=== PATIENT | male | born 1945 | race Caucasian/White ===

== ENCOUNTER → 2016-09-07 | Outpatient (CLI) | payer OTHER ==
--- NOTE | 2016-09-07 10:27 | US ---
EXAMINATION TYPE: US kidneys/renal and bladder DATE OF EXAM: 09/07/2016 9:59 AM COMPARISON: NONE CLINICAL HISTORY: R39.29 Hematuria. EXAM MEASUREMENTS: Right Kidney: 10.5 x 4.8 x 5.0 cm Left Kidney: 10.0 x 5.4 x 5.4 cm Right Kidney: probable peripelvic cyst slightly irregular shaped 1.) 1.1 x 1.2 x 1.2cm Left Kidney: No hydronephrosis or masses seen Bladder: cystic spaces within irregular shaped bladder wall Bilateral Jets seen: Yes Prostate appears prominent, possible enlargement There is no evidence for hydronephrosis at this point in time. No nephrolithiasis is seen. Irregular ity of the urinary bladder wall with multiple polypoid lesions seen. Bilateral ureteral jets are seen . IMPRESSION: 1. Probable right renal cyst. 2. Irregularity of the urinary bladder wall with multiple polypoid lesions.
== END | disposition home or self-care (01) ==
LOC: RADUSWWP 09:34
PROVIDERS: ATTEND Urology
DX: N32.89 Other specified disorders of bladder (principal); R31.9 Hematuria, unspecified
CPT/HCPCS: 76770

== ENCOUNTER 2016-09-11 06:57 | Day surgery (SDC) | payer OTHER ==
[2016-09-07 13:27] VITALS: BMI 23.7
[~2016-09-11 06:57] MED LIST: LACTATED RINGERS 1,000 ML IV SCH
[2016-09-11] MEDS ORDERED: LACTATED RINGERS 1,000 ML IV ONE (07:06)
[2016-09-11 07:12] VITALS: RESP 16; TEMP 96.6
[2016-09-11] MEDS ORDERED: PROPOFOL 10 MG/ML 20 ML VIAL IV ONE (08:38)
--- NOTE | 2016-09-11 09:08 | P.PCN ---
Date of Procedure: 09/11/16 Preoperative Diagnosis: Postoperative Diagnosis: Procedure(s) Performed: Procedure: Total colonoscopy. Preoperative diagnosis: Screening for neoplasia, patient has family history of colon cancer. Postoperative diagnosis: Exam within normal limits. Preparation: HalfLytely prep. Sedation: Was provided by anesthesia. Brief clinical history: The patient is a 70-year-old male who is scheduled for this evaluation for screening for neoplasia because of family history of colon cancer. His last exam was in 2011. Procedure: With the patient on his left lateral decubitus position and after informed consent and adequate sedation, the perianal area was inspected and it did not show any fissures or fistulas. There were no masses felt on digital rectal examination. The Olympus CFQ 160L video colonoscope was then inserted in the rectum in the usual fashion and advanced to the cecum. The mucosa appeared healthy. No polyps or tumors were seen or any obvious diverticular disease or other pathology. I retroflexed the endoscope in the rectum before the endoscope was withdrawn. The patient tolerated the procedure well. Plan: The patient was reassured. He will follow up with you as planned and consideration can be given for repeat exam in 5 years depending on his overall health at that time. Implants: Indications for Procedure: Operative Findings: Description of Procedure:
[2016-09-11 09:45] VITALS: BP 130/81; PULSE 61
== END 2016-09-11 11:23 | disposition home or self-care (01) ==
LOC: ORWHC2ENDO 06:57
DX: Z12.11 Encounter for screening for malignant neoplasm of colon (principal); Z80.0 Family history of malignant neoplasm of digestive organs; I10 Essential (primary) hypertension; Z79.899 Other long term (current) drug therapy
CPT/HCPCS: J2704; G0105

== ENCOUNTER → 2017-08-13 | Outpatient (CLI) | payer MEDICARE, OTHER ==
--- NOTE | 2017-08-13 11:33 | ECHOF ---
Referral Reason:R01.1 cardiac murmur MEASUREMENTS -------- HEIGHT: 182.9 cm WEIGHT: 71.7 kg BP: IVSd: 1.1 cm (0.6 - 1.1) LVIDd: 4.7 cm (3.9 - 5.3) LVPWd: 1.0 cm (0.6 - 1.1) IVSs: 1.2 cm LVIDs: 4.0 cm LVPWs: 1.2 cm LA Diam: 2.8 cm (2.7 - 3.8) Ao Diam: 3.9 cm (2.0 - 3.7) AV Cusp: 2.4 cm (1.5 - 2.6) LA Diam: 3.2 cm (2.7 - 3.8) MV EXCURSION: 15.271 mm (> 18.000) MV EF SLOPE: 60 mm/s (70 - 150) EPSS: 0.5 cm MV E Lamin: 0.32 m/s MV DecT: 215 ms MV A Lamin: 0.63 m/s MV E/A Ratio: 0.51 AR PHT: 651 ms RAP: 5.00 mmHg RVSP: 22.08 mmHg FINDINGS -------- Sinus rhythm. This was a technically good study. The left ventricular size is normal. Overall left ventricular systolic function is normal with, an EF between 55 - 60 %. The right ventricle is normal in size. Normal LA size by volume 22+/-6 ml/m2. The right atrial size is normal. There is mild aortic valve sclerosis. There is mild aortic regurgitation. Mild mitral annular calcification present. Mild mitral regurgitation is present. Mild tricuspid regurgitation present. There is no evidence of pulmonary hypertension. The right v entricular systolic pressure, as measured by Doppler, is 22.08mmHg. Trace/mild (physiologic) pulmonic regurgitation. Aortic Root is mildly dilated and measures 4.0cm. There is no pericardial effusion. CONCLUSIONS -------- 1. The left ventricular size is normal. 2. Overall left ventricular systolic function is normal with, an EF between 55 - 60 %. 3. There is mild aortic valve sclerosis. 4. There is mild aortic regurgitation. 5. Mild mitral annular calcification present. 6. Mild mitral regurgitation is present. 7. Mild tricuspid regurgitation present. 8. There is no evidence of pulmonary hypertension. 9. The right ventricular systolic pressure, as measured by Doppler, is 22.08mmHg. 10. Trace/mild (physiologic) pulmonic regurgitation. 11. Aortic Root is mildly dilated and measures 4.0cm. 12. There is no pericardial effusion. 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
== END | disposition home or self-care (01) ==
LOC: RADECHMAIN 08:22
PROVIDERS: ATTEND Family Medicine
DX: I08.1 Rheumatic disorders of both mitral and tricuspid valves (principal)
CPT/HCPCS: 93306

== ENCOUNTER → 2017-12-17 | Outpatient (CLI) | payer MEDICARE ==
--- NOTE | 2017-12-17 14:53 | MR ---
EXAMINATION TYPE: MR knee LT wo con DATE OF EXAM: 12/17/2017 COMPARISON: Prior MRI 01/13/2016, plain film 09/20/2017 HISTORY: Left knee pain TECHNIQUE: Multiplanar, multisequence imaging of the knee is performed without IV contrast. FINDINGS: MEDIAL MENISCUS: Anterior and posterior horns are intact without tear. LATERAL MENISCUS: The posterior horn of the lateral meniscus shows some linear increased signal which may extend to the articular surface on coronal image 23 and sagittal image 7, the meniscus shows a s omewhat truncated appearance. Suspect there is a posterior root tear of the lateral meniscus. CRUCIATE LIGAMENTS: The anterior and posterior cruciate ligaments are stable and probably strain or p artial tear noted of the proximal attachment of the posterior cruciate ligament. COLLATERAL LIGAMENTS: The medial collateral ligament and lateral collateral ligament complex are inta ct and unremarkable. EXTENSOR MECHANISM: Visualized quadriceps and patellar tendons are intact. EFFUSION: No significant suprapatellar joint effusion. POPLITEAL CYST: No popliteal/casarez cyst. TRICOMPARTMENT SPACES: Joint space loss greatest in the lateral compartment CARTILAGE: Chondromalacia is noted especially in the lateral compartment posteriorly at the proximal tibia and also at the lateral femoral condyle, rate 3 to grade IV chondromalacia noted. BONE MARROW SIGNAL: Subchondral marrow signal change in the lateral femoral condyle may be due to jyoti ctive marrow signal change, some signal changes noted in the medial femoral condyle medially. OTHER: Some marginal spurring present in the medial compartment and lateral compartment. Similar flu id signal noted at origin of medial gastrocnemius, with some improvement. IMPRESSION: Correlate for postop changes to the posterior horn of the lateral meniscus, findings suggest tear of the posterior horn of the lateral meniscus with meniscal root tear. Osteoarthritis..
== END | disposition home or self-care (01) ==
LOC: RADMRIMAIN 12:41
PROVIDERS: ATTEND Orthopaedic Surgery
DX: M17.12 Unilateral primary osteoarthritis, left knee (principal)

== ENCOUNTER → 2018-01-01 | Outpatient (CLI) | payer MEDICARE ==
[2018-01-01 11:23] LABS: Basophils % (A) 1 %; Eosinophils % (A) 1 %; HCT 40.5 % (39.0-53.0); HGB 13.8 gm/dL (13.0-17.5); Lymphocytes # (A) 0.9 k/uL (1.0-4.8); Lymphocytes % (A) 24 %; MCH 30.8 pg (25.0-35.0); MCHC 34.2 g/dL (31.0-37.0); MCV 90.1 fL (80.0-100.0); Monocytes # (A) 0.3 k/uL (0-1.0); Monocytes % (A) 8 %; Neutrophils # (A) 2.5 k/uL (1.3-7.7); Neutrophils % (A) 65 %; Platelet Count 187 k/uL (150-450); RBC 4.49 m/uL (4.30-5.90); RDW 13.4 % (11.5-15.5); WBC 3.8 k/uL (3.8-10.6)
[2018-01-01 11:43] LABS: Potassium 4.5 mmol/L (3.5-5.1)
== END | disposition home or self-care (01) ==
LOC: LABPAT 10:29
PROVIDERS: ATTEND Orthopaedic Surgery
DX: Z01.818 Encounter for other preprocedural examination (principal); M23.92 Unspecified internal derangement of left knee
CPT/HCPCS: 36415; 80051; 85025; 93005

== ENCOUNTER 2018-01-16 09:20 | Day surgery (SDC) | payer MEDICARE ==
[2018-01-13 09:45] VITALS: BMI 21.8
--- NOTE | 2018-01-15 17:47 | HP ---
HISTORY AND PHYSICAL DATE OF SURGERY: 01/16/2018. Conor Vale is a 72-year-old patient seen with progressive left knee pain. Treatment options discussed. He elected to proceed with arthroscopy. Consent was obtained. PAST MEDICAL HISTORY: Hypertension. PAST SURGICAL HISTORY: Appendectomy, herniorrhaphy. DAILY MEDICATIONS: 1. Lisinopril. 2. Vitamins. ALLERGIES: None reported. SOCIAL HISTORY: Patient denies tobacco use. PHYSICAL EVALUATION OF THE LEFT KNEE: Range of motion is 0-125 degrees. Mild effusion. Tenderness along the medial and lateral joint lines. Positive medial Jil's. Positive lateral Jil's. Ligaments are stable. Hip rotation is without pain. Distal neurovascular is intact. Left knee radiographs revealed moderate osteoarthritic changes. An MRI of the left knee revealed a lateral meniscal tear. IMPRESSION: Internal derangement of the left knee with lateral meniscal tear. PLAN: Left knee arthroscopy with partial meniscectomy and debridement. MMODL / IJN: [id number] /
[~2018-01-16 09:20] MED LIST changes: +DEXAMETHASONE SOD PHOSPHATE 10 MG/ML 1 ML VIAL IV ONE; +LIDOCAINE 1% 20 ML VIAL (10MG/ML) FOR IV START INTRADERMA PRN; +MIDAZOLAM 2 MG/2 ML VIAL IV PRN; +ONDANSETRON 4 MG/2 ML VIAL IVP ONE; +ceFAZolin 1,000 MG in EMPTY BAG 1 BAG IVPB ONE; +fentaNYL (PF) 50 MCG/ML 2 ML AMP IV PRN; +fentaNYL (PF) 50 MCG/ML 20 ML VIAL IVP PRN
[2018-01-16 10:55] VITALS: TEMP 97.2
[2018-01-16] MEDS ORDERED: PROPOFOL 10 MG/ML 20 ML VIAL IV ONE (11:41)
[2018-01-16] MEDS ORDERED: LIDOCAINE 1% INJ 10MG/ML (20 ML MDV) ONE (11:41)
[2018-01-16] MEDS ORDERED: ceFAZolin 1,000 MG VIAL IVPB ONE ×2 (11:41→12:04)
[2018-01-16] MEDS ORDERED: fentaNYL (PF) 50 MCG/ML 2 ML AMP ONE (11:41)
[2018-01-16] MEDS ORDERED: BUPIVACAIN-EPI 0.25%-1:200,000 30 ML VIAL INTRAARTIC ONE (12:01)
--- NOTE | 2018-01-16 12:32 | P.OP ---
Date of Procedure: 01/16/18 Preoperative Diagnosis: Internal derangement left knee Postoperative Diagnosis: 1. Tear medial and lateral meniscus left knee 2. Reactive synovitis medial and suprapatellar compartments left knee 3. Medial plica left knee 4. Grade 2 chondromalacia patella left knee Procedure(s) Performed: 1. Arthroscopic partial medial and lateral meniscectomy left knee 2. Arthroscopic partial synovectomy medial and suprapatellar compartments left knee 3. Arthroscopic resection medial plica left knee 4. Arthroscopic chondroplasty patella left knee Anesthesia: MINE, local Surgeon: Angel Pereira Estimated Blood Loss (ml): 10 Pathology: none sent Condition: stable Disposition: PACU Indications for Procedure: 72-year-old patient seen with progressive left knee pain. After having treatment options discussed, he elected to proceed with arthroscopy. Operative Findings: see description of procedure Description of Procedure: Patient was taken to the operative suite. Patient underwent a general anesthetic by the department of anesthesia. Patient was given preoperative antibiotics. The left lower extremity was placed in a well-padded arthroscopic leg hurt. The left leg was prepped and draped in the normal sterile orthopedic fashion. A lateral parapatellar and suprapatellar incision was made. Trochars were inserted. Arthroscopy was initiated. Suprapatellar pouch revealed diffuse thick reactive synovitis. The patellofemoral joint appeared to articulate congruently. There was grade 2 chondromalacia with some osteochondral tears present.. The scope was guided into the medial gutter. There was a medial plica present. It did impinge along the medial femoral condyle with range of motion. The scope was then guided into the medial compartment. A medial parapatellar incision was made. Trocar inserted followed by probe. There was a radial tear posterior horn medial meniscus. There were some grade 1 chondromalacia changes of the medial femoral condyle and tibial plateau with no osteochondral tears. There was reactive synovitis anteriorly. I performed a partial medial meniscectomy down to stable tissue. I performed a partial synovectomy decompressing the reactive synovitis. The residual meniscus was stable. There was good decompression of synovitis. Scope and probe were then guided into the intercondylar notch. Cruciates were identified, probed and found to be stable. The scope and probe were then guided into lateral compartment. There was a complex appearing tear involving the posterior horn of the lateral meniscus. There were grade 1/2 chondromalacia changes of the lateral femoral condyle with no osteochondral tears present. There was no synovitis present. There were no loose bodies. I performed a partial lateral meniscectomy down to stable tissue. The residual meniscus was found to be stable. The scope was in guided back into the suprapatellar compartment. I introduced a motorized shaver into the suprapatellar compartment. I debrided some piecemeal fragments of meniscus I encountered. I performed a chondroplasty of the patella gained down to stable tissue. I performed a partial synovectomy. Shaver was removed. The residual osteochondral surface of the patella appeared stable. There was good decompression of synovitis. Instruments were now removed from the joint. The joint was infiltrated with .25% Marcaine. Steri-Strips were applied to the portal sites. Sterile dressings were applied. The patient was placed into a EDVIN hose. No tourniquet was utilized. The patient was awakened, transferred to a bed and taken to recovery stable satisfactory condition.
[2018-01-16] MEDS: HYDROmorphone 1 MG/ML 1 ML SYRINGE IVP ONE ×2 (12:38→12:44)
[2018-01-16] MEDS ORDERED: LACTATED RINGERS 1,000 ML IV ONE (13:17)
[2018-01-16 13:28] VITALS: RESP 18
[2018-01-16 13:59] VITALS: BP 133/83; PULSE 56
== END 2018-01-16 14:16 | disposition home or self-care (01) ==
LOC: OR 09:20
PROVIDERS: ATTEND Orthopaedic Surgery
DX: S83.242A Other tear of medial meniscus, current injury, left knee, initial encounter (principal); S83.282A Other tear of lateral meniscus, current injury, left knee, initial encounter; X58.XXXA Exposure to other specified factors, initial encounter; M67.52 Plica syndrome, left knee; M22.42 Chondromalacia patellae, left knee; I10 Essential (primary) hypertension; Z79.899 Other long term (current) drug therapy
CPT/HCPCS: 29880; J2250; J1100; J2405; J0690 ×2; J2001; J3010; J1170; J2704

== ENCOUNTER → 2018-08-12 | Outpatient (CLI) | payer MEDICARE ==
[2018-08-12 15:48] LABS: Basophils % (A) 1 %; Eosinophils # (A) 0.1 k/uL (0-0.7); Eosinophils % (A) 1 %; HCT 41.6 % (39.0-53.0); Lymphocytes % (A) 20 %; MCH 30.3 pg (25.0-35.0); MCHC 33.6 g/dL (31.0-37.0); MCV 90.2 fL (80.0-100.0); Mean Platelet Volume 7.8; Monocytes # (A) 0.4 k/uL (0-1.0); Monocytes % (A) 7 %; Neutrophils # (A) 3.4 k/uL (1.3-7.7); Neutrophils % (A) 68 %; Platelet Count 166 k/uL (150-450); RBC 4.62 m/uL (4.30-5.90); RDW 13.5 % (11.5-15.5); WBC 4.9 k/uL (3.8-10.6)
[2018-08-12 16:05] LABS: Potassium 4.8 mmol/L (3.5-5.1)
== END | disposition home or self-care (01) ==
LOC: LABPAT 14:23
PROVIDERS: ATTEND Orthopaedic Surgery
DX: Z01.812 Encounter for preprocedural laboratory examination (principal); M23.91 Unspecified internal derangement of right knee
CPT/HCPCS: 36415; 80051; 85025

== ENCOUNTER 2018-08-25 12:41 | Day surgery (SDC) | payer MEDICARE ==
[2018-08-20 08:30] VITALS: BMI 23.0
--- NOTE | 2018-08-24 17:22 | HP ---
HISTORY AND PHYSICAL REASON FOR ADMISSION: Surgery scheduled for 08/25/2018 HISTORY OF PRESENT ILLNESS: Naseem Vale is a 72-year-old patient seen with progressive right knee pain. We discussed options. He elected to proceed with arthroscopy. Consent was obtained. PAST MEDICAL HISTORY: Hypertension. PAST SURGICAL HISTORY: Left knee arthroscopy, appendectomy, herniorrhaphy. DAILY MEDICATIONS: Lisinopril, vitamins. ALLERGIES: None. SOCIAL HISTORY: Denies tobacco use. PHYSICAL EXAMINATION: Evaluation of the right knee is range of motion is -12 to 70 degrees. Tenderness medial and lateral joint lines. Positive medial Jil's. Positive lateral Jil's. Ligaments stable. Hip rotation without pain. Distal neurovascular exam is intact. RADIOGRAPHS: Right knee radiographs revealed moderate to severe lateral compartment osteoarthritis. IMPRESSION: 1. Internal derangement, right knee with meniscal tear. 2. Right knee osteoarthritis. 3. Hypertension. PLAN: Right knee arthroscopy with partial meniscectomy and debridement. Surgery scheduled for 08/25/2018. MMODL / IJN: [id number] /
[~2018-08-25 12:41] MED LIST changes: -MIDAZOLAM 2 MG/2 ML VIAL IV PRN; -ceFAZolin 1,000 MG in EMPTY BAG 1 BAG IVPB ONE; +ceFAZolin IN SWFI 2 GM/20 ML SYRINGE IVP ONE; -fentaNYL (PF) 50 MCG/ML 2 ML AMP IV PRN; -fentaNYL (PF) 50 MCG/ML 20 ML VIAL IVP PRN
[2018-08-25] MEDS ORDERED: fentaNYL (PF) 50 MCG/ML 2 ML AMP ONE (14:40)
[2018-08-25] MEDS ORDERED: MIDAZOLAM 2 MG/2 ML VIAL ONE (14:40)
[2018-08-25] MEDS ORDERED: PROPOFOL 10 MG/ML 20 ML VIAL IV ONE (14:40)
[2018-08-25] MEDS ORDERED: BUPIVACAIN-EPI 0.5%-1:200,000 30 ML VIAL SQ ONE ×2 (14:53)
--- NOTE | 2018-08-25 15:37 | P.OP ---
Date of Procedure: 08/25/18 Preoperative Diagnosis: Internal derangement right knee Postoperative Diagnosis: 1. Tear lateral meniscus right knee 2. Grade 2 chondromalacia patella right knee 3. Reactive synovitis medial, lateral and suprapatellar compartments right knee Procedure(s) Performed: 1. Arthroscopic partial lateral meniscectomy right knee 2. Arthroscopic chondroplasty patella right knee 3. Arthroscopic partial synovectomy medial, lateral and suprapatellar compartme nts right knee Anesthesia: VICKIA, local Surgeon: Angel Pereira Estimated Blood Loss (ml): 5 Pathology: none sent Condition: stable Disposition: PACU Indications for Procedure: 72-year-old patient seen with progressive right knee pain. After treatment options discussed, he elected to proceed with arthroscopy. Operative Findings: See description of procedure Description of Procedure: Patient was taken to the operative suite. Patient underwent a general anesthetic by the department of anesthesia. Patient was given preoperative antibiotics. The right lower extremity was placed in a well-padded arthroscopic leg hurt. The right leg was prepped and draped in the normal sterile orthopedic fashion. A lateral parapatellar and suprapatellar incision was made. Trochars were inserted. Arthroscopy was initiated. Suprapatellar pouch revealed diffuse thick reactive synovitis. The patellofemoral joint appeared to articulate congruently. There was grade 2 chondromalacia of the patella with some osteochondral tears. The scope was guided into the medial gutter. No loose bodies or plica were identified The scope was then guided into the medial compartment. A medial parapatellar incision was made. Trocar inserted followed by probe. There were grade 1/2 chondromalacia changes of the medial femoral condyle with no osteochondral tears present. The meniscus was stable. There was reactive synovitis anteriorly. I performed a partial synovectomy of the medial compartment. There was good decompression of the synovitis. Scope and probe were then guided into the intercondylar notch. Cruciates were identified, probed and found to be stable. The scope and probe were then guided into lateral compartment. There was a complex tear of the posterior horn lateral meniscus. There were grade 2/3 chondromalacia changes of the lateral compartment. There was reactive synovitis anteriorly. I performed a partial medial meniscectomy down to stable tissue. I performed a partial synovectomy decompressing reactive synovitis. The residual meniscus was stable. There was good decompression of the synovitis. The scope was in guided back into the suprapatellar compartment. I introduced a motorized shaver into the super patellar compartment. I debrided piecemeal fragments of meniscus. I performed a chondroplasty of the patella down to stable tissue. I performed a partial synovectomy. There was good decompression of synovitis. The shaver was removed. I took one more look around the entire knee, no residual debris. Instruments were now removed from the joint. The joint was infiltrated with .25% Marcaine. Steri-Strips were applied to the portal sites. Sterile dressings were applied. The patient was placed into a EDVIN hose. No tourniquet was utilized. The patient was awakened, transferred to a bed and taken to recovery stable satisfactory condition.
[2018-08-25 15:56] VITALS: TEMP 97.5
[2018-08-25] MEDS: HYDROmorphone 0.5 MG/0.5 ML SYRINGE IVP PRN ×2 (16:15→16:21)
[2018-08-25] MEDS ORDERED: KETOROLAC 30 MG/ML 1 ML VIAL IVP ONE (16:25)
[2018-08-25 16:38] VITALS: RESP 18
[2018-08-25 17:17] VITALS: BP 138/89; PULSE 69
== END 2018-08-25 17:24 | disposition home or self-care (01) ==
LOC: OR 12:41
PROVIDERS: ATTEND Orthopaedic Surgery
DX: M23.351 Other meniscus derangements, posterior horn of lateral meniscus, right knee (principal); I10 Essential (primary) hypertension; M94.261 Chondromalacia, right knee; M17.11 Unilateral primary osteoarthritis, right knee; M65.861 Other synovitis and tenosynovitis, right lower leg; H91.92 Unspecified hearing loss, left ear; H40.9 Unspecified glaucoma; Z79.899 Other long term (current) drug therapy
CPT/HCPCS: 29881; 29876; J2250; J1100; J2405; J3010; J1885; J2704; J1170

== ENCOUNTER → 2022-11-02 | Outpatient (CLI) | payer MEDICARE ==
--- NOTE | 2022-11-02 21:12 | MR ---
EXAMINATION TYPE: MR brain and iac wo/w con DATE OF EXAM: 11/02/2022 7:53 PM CLINICAL INDICATION:Male, 77 years old with history of D33.3; COMPARISON: 11/29/2009, 03/30/2014 TECHNIQUE: Multi planar, multi sequence imaging was performed through the brain. Specialized thin s equences were obtained through the internal auditory canals. Pre-and post gadolinium sequences were obtained. MR contrast: IV Contrast: 7.5 cc Gadavist FINDINGS: The thomas-white junctions, ventricular system, and cisterns appear unremarkable. Scattered foci and confluent areas of high T2 signal intensity are seen within the periventricular white matter. Midline structures show no abnormality. Diffusion-weighted imaging shows no evidence of restricted diffusion . The susceptibility weighted images do not reveal any evidence for micro-hemorrhage. The bone marrow signal is within normal limits. Paranasal sinuses and mastoid air cells: Mild scattered paranasal sinus disease. Visualized orbits: Bilateral aphakia After administration of gadolinium, no abnormal enhancement is seen. The internal auditory canal sequences demonstrate no significant irregularity. The 7th cranial nerve s, 8 cranial nerves, and cerebellar pontine angles appear unremarkable. After the administration claribel olinium, no abnormal enhancement is seen within the internal auditory canals. Area of prior in 2013 d escribed at the left cerebellopontine angle is felt to be just outside the skull and not within the c alvarium. Vascular loop: None. IMPRESSION: 1. No evidence of intracranial mass nor acute/subacute CVA. 2. No evidence of internal auditory canal abnormality. Area seen on prior in 2013 is felt to be with in just outside the skull. No evidence for acoustic neuroma. The internal canals are patent. No helder s visualized. 3. Extensive nonspecific white matter changes, likely secondary to small vessel ischemic disease. Fi ndings grossly similar to prior.
== END | disposition home or self-care (01) ==
LOC: RADMRIMAIN 18:48
PROVIDERS: ATTEND Otolaryngology Otology & Neurotology
DX: D33.3 Benign neoplasm of cranial nerves (principal); R90.82 White matter disease, unspecified
CPT/HCPCS: 70553; A9585

== ENCOUNTER → 2023-02-07 | Outpatient (CLI) | payer MEDICARE ==
--- NOTE | 2023-02-07 15:27 | MR ---
EXAMINATION TYPE: MR lumbar spine wo con DATE OF EXAM: 02/07/2023 COMPARISON: None HISTORY: Low back pain TECHNIQUE: Multiplanar, multisequence images of the lumbar spine were acquired without IV contrast. FINDINGS: Lumbar segments are intact. No paraspinal masses are identified. Conus medullaris has a normal appe arance. Multilevel disc desiccation. Schmorl's nodes involving the superior and inferior plates of th e T12 vertebral body. Small sacral Tarlov cysts identified. L1-L2: Normal disc appearance without desiccation. No herniation, protrusion or disc bulging. No ca nal stenosis is present. Foramina are patent bilaterally. L2-L3: Disc bulge with minimal effacement of the anterior thecal sac.Bilateral facet arthropathy with ligamentum flavum buckling. Neural foramen are patent bilaterally. L3-L4: Disc bulge with minimal effacement of the anterior thecal sac. Bilateral facet arthropathy wit h ligamentum flavum buckling. Neural foramen are patent bilaterally. L4-L5: Small central disc protrusion with minimal effacement of the anterior thecal sac. Bilateral fa cet arthropathy with ligamentum flavum buckling. Neural foramen are patent bilaterally. L5-S1: Posterior disc site. No disc herniation or bulge. No significant central canal stenosis. Bilat eral facet arthropathy. Minimal bilateral neural foraminal narrowing. IMPRESSION: 1. No disc herniation or significant central canal stenosis. 2. Mild multilevel degenerative disc disease and facet arthropathy.
== END | disposition home or self-care (01) ==
LOC: RADMRIMAIN 14:05
PROVIDERS: ATTEND Orthopaedic Surgery
DX: M51.36 Other intervertebral disc degeneration, lumbar region (principal); M47.817 Spondylosis without myelopathy or radiculopathy, lumbosacral region
CPT/HCPCS: 72148

== ENCOUNTER → 2023-04-04 | Outpatient (CLI) | payer MEDICARE ==
[2023-04-04 11:02] VITALS: BP 146/72; PULSE 88; RESP 15; TEMP 98.6
--- NOTE | 2023-04-04 15:32 | P.PAINPG ---
PQRS Measure Charge Sheet Comment: HISTORY OF PRESENT ILLNESS: A 77 yr old male as a referral from [facility] presents today w severe and chronic LBP x 1 yr secondary to DDD, spondylosis and facet arthropathy without myelopathy for evaluation. Pt states pain level is provoked at 7 /10 in intensity, constant, localized in the lower lumbar spine, predominantly axial, stabbing in character w occasional shooting pain towards the BL hips, thighs and knees. Pain is provoked by laying supine on the left side. Pain is alleviated by PT 7 weeks which he is currently in,medications (Stanfield 5/325mg, Advil), heat, use of a massage device, reclining and rest. Oswestry axial pain score at 24. PMH: OA, HTN, Glaucoma PSH: R Knee Arthroscopy (2019), L Knee Arthroscopy (2016, 2018), Colonoscopy 2017) SH: Negative x3 FH: Non contributory All: See list Meds: See list REVIEW OF ORGAN SYSTEMS: CONSTITUTIONAL: No fevers or chills. No recent weight loss. NEUROLOGICAL: + numbness and tingling along the distal extremities. No seizure disorders or headaches. MUSCULOSKELETAL: + pain PSYCHIATRIC: Denies current depression or suicidal thoughts. Physical Examinations : Constitutional : Cooperative , not in acute distress . Neurologic : Cranial nerve II to XII intact. No focal neurological deficits. Psychiatric : alert & oriented x 3. Matching mood & appropriate affect. Judgment & insight intact. Musculoskeletal : Cervical Spine Motor strength in the deltoid and biceps: Normal right side. Normal Left side Motor strength biceps and the wrist extensors: Normal right side . Normal left side Motor strength in the triceps muscle: Normal right side. Normal left side Deep tendon reflexes: Normal at the biceps. Normal at Brachioradialis. Normal at triceps Vertebral body tenderness to deep palpation over Cervical facet loading test: positive bilaterally Spurling test: positive bilaterally Neck distraction test: positive bilaterally Manuela sign: positive bilaterally Lumbar spine Motor strength lower extremities ,thigh and legs 5/5 Right side , 5/5 Left side Deep tendon reflexes : Normal Knee Jerk. Normal Ankle Jerk Vertebral body tenderness over L3 Salazar Test positive over BL L2-L3 Lumbar facet Loading Test: positive Right / positive Left Range of motion of the lumbar spine Flexion 30 degrees, extension 10 degrees Straight Leg Raise test: Left/ Right positive at degree Earnest test: positive right / positive left. Severe tenderness over the Sacroiliac joint on the Right / Left sides Gaenslen test: positive bilaterally Seated flexion test: positive bilaterally. Sacral spine : Severe tenderness over the Sacroiliac joint: right side / left side Range of motion: Flexion of the lumbar spine <60 degrees Range of motion: Extension of the lumbar spine <20 degrees Gaenslen's Test positive Earnest test: positive right side / left side Thigh Thrust Test Sacral Thrust Test Imaging: MRI noncontrast of the lumbar spine from 02/07/23 reviewed Assessment/ Plan : Lumbar DDD Recommendation of ALICIA L20L3 #1. May need a series of injections for optimal pain relief. Risks, benefits of procedure discussed and patient verbalized understanding. Admits to anti- coagulant use or medical history of diabetes. Protocol for discontinuation/ continuation of medications ernesto procedure discussed. All questions answered. I have spent greater than 30 minutes on patient care today. Dr Zamora was available by phone for the evaluation of this patient. The time was used to review the medical records including relevant urine studies and Prescription history (MAPs), review of the available imaging, evaluation and examination of the patient, coordination of care with the medical staff and if applicable referring physicians, as well as creation of the medical record PQRS Narrative: Smoking Status Never smoker Home Medications: Ambulatory Orders lisinopriL [Zestril] 10 mg PO QAM 02/21/16 Travoprost [Travatan Z 0.004%] 1 drop BOTH EYES HS 01/13/18 Doxycycline [Vibramycin] 100 mg PO BID 08/20/18 Triamcinolone Acetonide [Triamcinolone Acetonide 0.025%] 1 applic TOPICAL DAILY PRN 08/20/18 Hydrocodone/Acetaminophen [Stanfield 5-325] 1 each PO Q6HR PRN #20 tab 08/25/18 Controlled Substance Measures - Controlled Substance Measures Is patient prescribed a controlled substance at discharge?: No
== END ==
LOC: PNWHC3 08:24
PROVIDERS: ATTEND Specialist
DX: M47.817 Spondylosis without myelopathy or radiculopathy, lumbosacral region (principal); M54.14 Radiculopathy, thoracic region; M54.16 Radiculopathy, lumbar region; M51.37 Other intervertebral disc degeneration, lumbosacral region
CPT/HCPCS: 99211

== ENCOUNTER 2023-04-16 06:46 | Day surgery (SDC) | payer MEDICARE ==
[2023-04-16] MEDS ORDERED: LACTATED RINGERS 1,000 ML IV SCH (06:51)
[2023-04-16 07:06] VITALS: TEMP 97
[2023-04-16] MEDS ORDERED: ROPIVACAINE 5MG/ML 20ML VIAL ONE (07:46)
[2023-04-16] MEDS ORDERED: IOPAMIDOL M200 10 ML VIAL ONE (07:46)
[2023-04-16] MEDS ORDERED: methylPREDNISolone ACETATE 80 MG/ML 1 ML VIAL ONE (07:46)
[2023-04-16 08:19] VITALS: RESP 16
--- NOTE | 2023-04-16 08:24 | P.PCN ---
Description of Procedure: PREOPERATIVE DIAGNOSIS: 1- Lumbar Degenerative Disc Diseases 2-Lumbar spondylosis with Facet arthropathy without myelopathy. 3-lumbar spinal stenosis POSTOPERATIVE DIAGNOSIS: 1-lumbar degenerative disc disease. 2-lumbar spondylosis with facet arthropathy without myelopathy. 3-lumbar spinal stenosis. PROCEDURE Injection of radial contrast material into L5S1 interspace, interpretation of epidurogram, injection of steroid at L5S1 epidural space under fluoroscopic guidance. ANESTHESIA: Lidocaine 1% subcutaneously. In OR continuous pulse ox, EKG, blood pressure and volleyball complication was maintained with the patient. EBL: Minimal PROCEDURE INDICATION: Before the procedure were discussed with the patient det hira procedure, alternatives, complications including infection, bleeding, nerve damage, paralysis all of which could be permanent. Patient understands and all questions were answered. PROCEDURE DESCRIPTION : After getting consent, patient in OR in prone position. Back was prepped with chlorhexidine and draped in sterile fashion. After injecting 10 mL of 1% lidocaine subcutaneously, a 20-gauge Tuohy needle was introduced at L4 5 interspace with loss of resistance technique using a syringe filled with air. Unable to get him to epidural space at L4 5 level. Decided to change the level to L5-S1. After injecting 10 mm 1% lidocaine subcutaneously, a 20-gauge Tuohy needle was introduced at L5-S1 interspace with loss of resistance technique using his syringed filled with air. Negative CSF, negative blood, negative paresthesia. Needle position was confirmed with AP and lateral view of the fluoroscope. After repeat negative aspiration 2 mL of Omnipaque 200 water soluble contrast was injected. Contrast was noted in the epidural space. No contrast was noted into intrathecal or intravascular space. After repeat negative aspiration 6 mL solution was injected intermittently which consists of 5 mL of preservative-free normal saline mixed with 1 mL of 80 mg Depo-Medrol. Needle was withdrawn intact. Skin was cleansed and Band-Aids was applied. DISPOSITION / PLANS: The patient tolerated the procedure well. No complication. The patient was placed in a supine position and transferred to the recovery area in a stable condition for observation. There was no evidence of lower extremity motor or sensory deficit after the procedure. Patient was discharged from the recovery room after meeting discharge criteria. Home discharge instructions were given to the patient by the staff. The patient was reexamined prior to discharge. The patient will schedule a follow up in the clinic in 2-4 weeks.
[2023-04-16 08:45] VITALS: BP 118/81; PULSE 59
--- NOTE | 2023-04-16 09:12 | FL ---
EXAMINATION TYPE: FL guided pain mgmt statistic DATE OF EXAM: 04/16/2023 HISTORY: Fluoroscopy time Total dose area product (DAP) in uGy*m?, mGy*cm? (or similar): 0.38391 IMPRESSION: 1. Fluoroscopy time.
== END 2023-04-16 08:41 | disposition home or self-care (01) ==
LOC: ORPAIN 06:46
PROVIDERS: ATTEND Pain Medicine Interventional Pain Medicine
DX: M51.36 Other intervertebral disc degeneration, lumbar region (principal); M47.816 Spondylosis without myelopathy or radiculopathy, lumbar region; M48.061 Spinal stenosis, lumbar region without neurogenic claudication
CPT/HCPCS: 62323; J1040; Q9966; J2795

== ENCOUNTER → 2023-06-26 | Outpatient (CLI) | payer MEDICARE ==
[2023-06-26 09:22] VITALS: BP 96/56; PULSE 87; RESP 15; TEMP 98.9
--- NOTE | 2023-06-26 14:26 | P.PAINPG ---
Objective - Vital Signs Vital signs: Intake & Output 06/25/23 06/26/23 06/26/23 18:59 06:59 18:59 Weight 167 kg PQRS Measure Charge Sheet Comment: HISTORY OF PRESENT ILLNESS: A 77 yr old male presents today w severe and chronic LBP x 1 yr secondary to DDD, spondylosis and facet arthropathy without myelopathy for evaluation s/p ALICIA L4-L5 #1. Pt states he experienced 70% pain reliev x 8 wks s/p procedure. Pt states pain level is provoked at 3 /10 in intensity, constant, localized in the lower lumbar spine, predominantly axial, stabbing in character w occasional shooting pain towards the BL hips, thighs and knees. Pain is provoked by laying supine on the left side. Pain is alleviated by PT 7 weeks which he is currently in,medications, heat, use of a massage device, reclining and rest. Oswestry axial pain score at 24. Interventional procedures include ALICIA L4-L5 x1 Medications include Wilmer 5/325 mg, Advil REVIEW OF ORGAN SYSTEMS: CONSTITUTIONAL: No fevers or chills. No recent weight loss. NEUROLOGICAL: + numbness and tingling along the distal extremities. No seizure disorders or headaches. MUSCULOSKELETAL: + pain PSYCHIATRIC: Denies current depression or suicidal thoughts. Physical Examinations : Constitutional : Cooperative , not in acute distress . Neurologic : Cranial nerve II to XII intact. No focal neurological deficits. Psychiatric : alert & oriented x 3. Matching mood & appropriate affect. Judgment & insight intact. Musculoskeletal : Cervical Spine Motor strength in the deltoid and biceps: Normal right side. Normal Left side Motor strength biceps and the wrist extensors: Normal right side . Normal left side Motor strength in the triceps muscle: Normal right side. Normal left side Deep tendon reflexes: Normal at the biceps. Normal at Brachioradialis. Normal at triceps Vertebral body tenderness to deep palpation over Cervical facet loading test: positive bilaterally Spurling test: positive bilaterally Neck distraction test: positive jennifer aterally Manuela sign: positive bilaterally Lumbar spine Motor strength lower extremities ,thigh and legs 5/5 Right side , 5/5 Left side Deep tendon reflexes : Normal Knee Jerk. Normal Ankle Jerk Vertebral body tenderness over L4 Salazar Test positive over Lumbar facet Loading Test: positive Right / positive Left Range of motion of the lumbar spine Flexion 30 degrees, extension 10 degrees Straight Leg Raise test: Left/ Right positive at degree Earnest test: positive right / positive left. Severe tenderness over the Sacroiliac joint on the Right / Left sides Gaenslen test: positive bilaterally Seated flexion test: positive bilaterally. Sacral spine : Severe tenderness over the Sacroiliac joint: right side / left side Range of motion: Flexion of the lumbar spine <60 degrees Range of motion: Extension of the lumbar spine <20 degrees Gaenslen's Test positive Earnest test: positive right side / left side Thigh Thrust Test Sacral Thrust Test Imaging: MRI noncontrast of the lumbar spine from 02/07/23 reviewed Assessment/ Plan : Lumbar DDD Will manage residual pain and may RTC on an as needed basis. All questions answered. I have spent greater than 30 minutes on patient care today. Dr Zamora was available by phone for the evaluation of this patient. The time was used to review the medical records including relevant urine studies and Prescription history (MAPs), review of the available imaging, evaluation and examination of the patient, coordination of care with the medical staff and if applicable referring physicians, as well as creation of the medical record PQRS Narrative: Smoking Status Never smoker Hx Alcohol Use (MH) No Home Medications: Ambulatory Orders lisinopriL [Zestril] 10 mg PO QAM 02/21/16 Triamcinolone Acetonide [Triamcinolone Acetonide 0.025%] 1 applic TOPICAL DAILY PRN 08/20/18 Doxycycline(Unk) 1 tab PO DAILY 04/12/23 Finasteride (Unk) 1 dose PO DIRECTED 04/12/23 Lumigen 1 dose BOTH EYES DIRECTED 04/12/23 Controlled Substance Measures - Controlled Substance Measures Is patient prescribed a controlled substance at discharge?: No
== END ==
LOC: PNWHC3 08:53
PROVIDERS: ATTEND Specialist
DX: M51.36 Other intervertebral disc degeneration, lumbar region (principal)
CPT/HCPCS: 99211

== ENCOUNTER → 2023-09-06 | Outpatient (CLI) | payer MEDICARE ==
--- NOTE | 2023-09-06 16:45 | MR ---
EXAMINATION TYPE: MR knee RT wo con DATE OF EXAM: 09/06/2023 COMPARISON: None HISTORY: Pain TECHNIQUE: Multiplanar, multisequence imaging of the right knee is performed without IV contrast. FINDINGS: There is no bone contusion or fracture. There is a small joint effusion. There is no degeneration of the patellofemoral compartment and the quadriceps and patellar tendons ar e intact. There is a tear of the anterior cruciate ligament and is mild strain of the medial collateral ligamen t. The posterior horn and body of the lateral meniscus is absent raising the question of prior surgery i nvolving the lateral meniscus. There is no bucket-handle tear or flipped lateral meniscus. There is n o medial meniscal tear. There is moderate to severe osteoarthritis of the lateral compartment of the knee where there is moderate to severe joint space narrowing, loss of a portion of the meniscus and m ild subchondral changes. There are mild degenerative changes of the medial compartment. IMPRESSION: 1. Absence of the body and posterior horn lateral meniscus raising the question of prior surgery as d escribed above. 2. Moderate to marked osteoarthritis of the lateral compartment the knee and mild osteoarthritis of t he medial compartment. 3. Small joint effusion. 4. Tear of the anterior cruciate ligament and mild strain of the medial collateral ligament.
== END | disposition home or self-care (01) ==
LOC: RADMRIMAIN 11:07
PROVIDERS: ATTEND Orthopaedic Surgery
DX: M17.11 Unilateral primary osteoarthritis, right knee (principal); M25.461 Effusion, right knee; M23.611 Other spontaneous disruption of anterior cruciate ligament of right knee; M23.631 Other spontaneous disruption of medial collateral ligament of right knee

== ENCOUNTER 2023-10-23 07:38 | Day surgery (SDC) | payer MEDICARE ==
[2023-10-18 13:32] VITALS: BMI 22.4
--- NOTE | 2023-10-22 13:45 | HP ---
HISTORY AND PHYSICAL DATE OF SURGERY: 10/23/2023. HISTORY OF PRESENT ILLNESS: Conor Vael is a 78-year-old gentleman seen with progressive right knee pain. We discussed options regarding treatment. He elected to proceed with right knee arthroscopy. Consent was obtained. PAST MEDICAL HISTORY: Hypertension. PAST SURGICAL HISTORY: Appendectomy, herniorrhaphy, knee arthroscopy. DAILY MEDICATIONS: 1. Lisinopril. 2. Finasteride. ALLERGIES: None. SOCIAL HISTORY: Denies tobacco use. PHYSICAL EVALUATION OF THE RIGHT KNEE: His range of motion is 0 to 130 degrees. Tenderness along the lateral joint line. Positive lateral Jil's. Positive medial Jil's. +1/2 Toni. Collateral ligaments are stable. Distal neurovascular exam is intact. IMAGING STUDIES: Radiographs of right knee revealed moderate osteoarthritis. MRI of right knee revealed anterior cruciate ligament tear and osteoarthritic changes. IMPRESSION: 1. Internal derangement of right knee with anterior cruciate ligament tear. 2. Hypertension. PLAN: Right knee arthroscopy with ACL tear and debridement. MMODL / IJN: [id number] /
[~2023-10-23 07:38] MED LIST changes: -DEXAMETHASONE SOD PHOSPHATE 10 MG/ML 1 ML VIAL IV ONE; -LACTATED RINGERS 1,000 ML IV SCH; +LIDOCAINE 1% (10MG/ML) FOR IV START INTRADERMA PRN; -LIDOCAINE 1% 20 ML VIAL (10MG/ML) FOR IV START INTRADERMA PRN; -ONDANSETRON 4 MG/2 ML VIAL IVP ONE; -ceFAZolin IN SWFI 2 GM/20 ML SYRINGE IVP ONE
[2023-10-23] MEDS: LACTATED RINGERS 1,000 ML IV SCH (08:36)
[2023-10-23] MEDS: ONDANSETRON 4 MG/2 ML VIAL IVP ONE (08:37)
[2023-10-23] MEDS: IV FLUID CONTINUATION 1,000 ML IV ONE ×2 (08:39→11:12)
[2023-10-23 08:49] LABS: Basophils % (A) 1 %; Eosinophils # (A) 0.1 k/uL (0-0.7); Eosinophils % (A) 1 %; HCT 38.1 % (39.0-53.0); HGB 13.1 gm/dL (13.0-17.5); Lymphocytes # (A) 0.9 k/uL (1.0-4.8); Lymphocytes % (A) 20 %; MCH 31.4 pg (25.0-35.0); MCHC 34.5 g/dL (31.0-37.0); Mean Platelet Volume 9.4; Monocytes # (A) 0.3 k/uL (0-1.0); Monocytes % (A) 6 %; Neutrophils # (A) 3.2 k/uL (1.3-7.7); Neutrophils % (A) 70 %; Platelet Count 127 k/uL (150-450); RBC 4.18 m/uL (4.30-5.90); RDW 13.1 % (11.5-15.5); WBC 4.6 k/uL (3.8-10.6)
[2023-10-23 09:08] LABS: Potassium 4.4 mmol/L (3.5-5.1)
[2023-10-23] MEDS ORDERED: ePHEDrine 50 MG/ML 1 ML VIAL ONE (09:24)
[2023-10-23] MEDS ORDERED: PROPOFOL 10 MG/ML 20 ML VIAL IV ONE (09:24)
[2023-10-23] MEDS ORDERED: fentaNYL (PF) 50 MCG/ML 2 ML AMP ONE (09:24)
[2023-10-23] MEDS: BUPIVACAINE (PF) 0.25% 30 ML VIAL MISCELLANE ONE ×2 (09:24→10:10)
[2023-10-23] MEDS ORDERED: KETOROLAC 15 MG/ML 1 ML VIAL ONE (09:24)
[2023-10-23] MEDS ORDERED: LIDOCAINE 1% INJ 10MG/ML (20 ML MDV) ONE (09:24)
[2023-10-23] MEDS ORDERED: MIDAZOLAM 2 MG/2 ML VIAL ONE (09:24)
[2023-10-23] MEDS ORDERED: GLYCOPYRROLATE 0.2 MG/ML 2 ML VIAL ONE (09:24)
[2023-10-23] MEDS ORDERED: SUCCINYLCHOLINE CHLORIDE 200 MG/10 ML VIAL IV ONE (09:24)
--- NOTE | 2023-10-23 10:27 | P.OP ---
Date of Procedure: 10/23/23 Preoperative Diagnosis: Internal derangement right knee Postoperative Diagnosis: 1. Tear medial and lateral meniscus right knee 2. 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 Reactive synovitis medial, lateral and suprapatellar compartments right knee 4. Grade II chondromalacia patella right knee 5. Partial ACL tear right knee Procedure(s) Performed: 1. Arthroscopic partial medial and lateral meniscectomy right knee 2. Arthroscopic microfracture lateral femoral condyle right knee 3. Arthroscopic partial synovectomy medial, lateral and suprapatellar compartments right knee 4. Arthroscopic chondroplasty patella right knee 5. Arthroscopic debridement partial ACL tear right knee Anesthesia: GETA, local Surgeon: Angel Pereira Estimated Blood Loss (ml): 9 Pathology: none sent Condition: stable Disposition: PACU Indications for Procedure: 78-year-old gentleman seen with progressive right knee pain. After having treatment options discussed, he elected to proceed with arthroscopy. Operative Findings: See description of procedure Description of Procedure: Patient was taken to the operative suite. Patient underwent a general anesthetic by the department of anesthesia. Patient was given preoperative antibiotics. The right lower extremity was placed in a well-padded arthroscopic leg hurt. The right leg was prepped and draped in the normal sterile orthopedic fashion. A lateral parapatellar and suprapatellar incision was made. Trochars were inserted. Arthroscopy was initiated. Suprapatellar pouch revealed diffuse thick reactive synovitis. The patellofemoral joint appeared to articular congruently. There was grade II chondromalacia of the patella with osteochondral flap tears present. The scope was guided into the medial gutter. No loose bodies or plica were identified. The scope was then guided into the medial compartment. A medial parapatellar incision was made. Trocar inserted followed by probe. There was a radial tear involving the posterior horn medial meniscus. There were grade I chondromalacia changes of the medial compartment without tears. There was some thick reactive synovitis anteriorly. I performed a partial medial meniscectomy getting down to stable meniscal tissue. I performed a partial synovectomy decompressing the thick reactive synovitis anteriorly. The residual meniscus was probed and was found to be stable. There was good decompression of the synovitis. Scope and probe were then guided into the intercondylar notch. There was some partial tearing of the anterior cruciate ligament which appeared to be less than 20%. I had used a motorized shaver and debrided out the area of partial tearing. The residual ACL was stable. The scope and probe were then guided into lateral compartment. There was a radial tear anterior horn lateral meniscus. There were grade IV chondromalacia changes of the tibial plateau and grade IV chondromalacia changes of the femoral condyle with an area of exposed bone. There was some thick reactive situs anteriorly. I performed a partial lateral meniscectomy getting down to stable meniscal tissue. I performed a chondroplasty of the lateral femoral condyle getting down to stable osteochondral tissue. I performed a partial synovectomy decompressing the thick reactive synovitis. I now introduced a microfracture awl and performed a microfracture to the area of exposed bone lateral femoral condyle penetrating the bone with resultant bleeding at the microfracture site. The residual meniscus was stable. The residual osteochondral surface was stable. There was good decompression of the synovitis. The scope was in guided back into the suprapatellar compartment. I introduced a motorized shaver into the suprapatellar compartment. I performed a chondroplasty of the patella getting down to stable osteochondral tissue. I performed a partial synovectomy decompressing the reactive synovitis. The residual osteochondral surface of the patella was stable again noting grade II chondromalacia. There was good decompression of the synovitis. I took 1 more look around the entire knee, no residual debris. Instruments were now removed from the joint. The joint was infiltrated with .25% Marcaine. Steri-Strips were applied to the portal sites. Sterile dressings were applied. The patient was placed into a EDVIN hose. No tourniquet was utilized. The patient was awakened, transferred to a bed and taken to recovery stable satisfactory condition.
[2023-10-23 10:47] VITALS: TEMP 97.2
[2023-10-23] MEDS: HYDROmorphone 0.5 MG/0.5 ML SYRINGE IVP PRN (10:54)
[2023-10-23 11:51] VITALS: BP 122/72; PULSE 57; RESP 18
== END 2023-10-23 12:07 | disposition home or self-care (01) ==
LOC: OR 07:38
PROVIDERS: ATTEND Orthopaedic Surgery
DX: S83.281A Other tear of lateral meniscus, current injury, right knee, initial encounter (principal); S83.241A Other tear of medial meniscus, current injury, right knee, initial encounter; S83.511A Sprain of anterior cruciate ligament of right knee, initial encounter; M22.41 Chondromalacia patellae, right knee; M65.161 Other infective (teno)synovitis, right knee; I10 Essential (primary) hypertension; K21.9 Gastro-esophageal reflux disease without esophagitis; N40.0 Benign prostatic hyperplasia without lower urinary tract symptoms; F17.200 Nicotine dependence, unspecified, uncomplicated; Z90.49 Acquired absence of other specified parts of digestive tract; Z79.899 Other long term (current) drug therapy; X58.XXXA Exposure to other specified factors, initial encounter
CPT/HCPCS: 29880; 29879; 80051; 85025; J2250; J0330; J0690; J2405; J2001; J3010; J1885; J2704; J1170; J0665

== ENCOUNTER → 2023-12-18 | Outpatient (CLI) | payer MEDICARE | LOC: PNWHC3 08:30 | PROVIDERS: ATTEND Specialist | DX: M47.816 Spondylosis without myelopathy or radiculopathy, lumbar region (principal) | CPT/HCPCS: 99211 ==

== ENCOUNTER 2024-01-23 09:14 | Day surgery (SDC) | payer MEDICARE ==
[2024-01-17 11:43] VITALS: BMI 21.7
[2024-01-23] MEDS ORDERED: LACTATED RINGERS 1,000 ML IV SCH (09:38)
[2024-01-23 09:54] VITALS: RESP 16; TEMP 97.1
[2024-01-23] MEDS ORDERED: methylPREDNISolone ACETATE 40 MG/ML 1 ML VIAL ONE (10:22)
[2024-01-23] MEDS ORDERED: IOPAMIDOL M200 10 ML VIAL ONE (10:22)
--- NOTE | 2024-01-23 10:30 | P.PCN ---
Date of Procedure: 01/23/24 Procedure(s) Performed: PREOPERATIVE DIAGNOSIS: 1-Lumbar radiculopathy . 2-lumbar degenerative disc disease. POSTOPERATIVE DIAGNOSIS: 1-lumbar radiculopathy. 2-lumbar degenerative disc disease. PROCEDURE 1. Transforaminal epidural steroid injection under fluoroscopic guidance at left L4-5 level. (Fluoroscopy images stored on file in the radiology Department ) 2. Lumbar epidurogram . ANESTHESIA: Local with 1% lidocaine 3 ml. EBL: Minimal PROCEDURE INDICATION: The patient with low back pain and radiculopathy symptoms unresponsive to conservative treatment. PROCEDURE DESCRIPTION / TECHNIQUE: The patient was seen and identified in the preoperative area. Risks, benefits, complications, and alternatives were discussed with the patient. The patient agreed to proceed with the procedure and signed the consent. IV was started, and vital signs were stable. Patient was taken to the OR and time out was completed. The patient was placed in the prone position on procedure table and a pillow was placed under the abdomen to reduce lumbar lordosis. The lumbosacral area was prepped and draped in the usual sterile fashion. Critical pause was taken. Vital signs were closely monitored during the procedure. Using oblique fluoroscopy, the chin of the ``Demetri dog at Left L4-5 level was identified, and the skin and deeper tissues just below was localized with 1% lidocaine. Subsequently, a 22-gauge 3.5-inch spinal needle was advanced under a tunneled view fluoroscopic guidance just underneath the chin of the `Saludy dog at the left L4-5 Under lateral fluoroscopy, the needle was then advanced to the posterior border of the interforaminal space. After negative aspiration of CSF and blood and with no paresthesias, 1 mL Isovue 200 contrast dye was injected excellent epidurogram and outlining of the nerve root Subsequently, 3 mL of block solution containing 40 mg Depo-Medrol and 2 mL of 0.9% normal saline PF was injected. Needle was removed . At the end of the procedure, skin was cleansed, and bandages were applied. COMPLICATIONS:none DISPOSITION / PLANS: The patient was placed in a supine position and transferred to the recovery area in a stable condition for observation. There was no evidence of lower extremity motor or sensory deficit after the procedure. Patient was discharged from the recovery room after meeting discharge criteria. Home discharge instructions were given to the patient by the staff. The patient was reexamined prior to discharge.
[2024-01-23 10:35] VITALS: BP 135/79; PULSE 56
--- NOTE | 2024-01-28 18:22 | FL ---
EXAMINATION TYPE: FL guided pain mgmt statistic DATE OF EXAM: 01/23/2024 10:32 AM COMPARISON: Pre Operative Images if available both CT/MRI or plain film CLINICAL INDICATION: Male, 78 years old with history of M54.16; TECHNIQUE: FL guided pain mgmt statistic, multiple fluoroscopic images provided for procedure. Total fluoroscopy time: 3.3 seconds Total submitted images to PACS: 1 DAP: 0.83850 mGym2 Gycm2 uGym2 cGycm2 or equivalent. FINDINGS: Fluoroscopic images during endoscopic retrograde cholangiopancreatography demonstrated no evidence fo r extravasation of contrast. Mild dilation of the extra hepatic biliary system without evidence of fi lling defect to suggest choledocholithiasis. IMPRESSION: 1. No evidence for intraoperative complication. 2. Please see the operative/procedural note for further details. [facility] Corrie Longoria, , 01/28/2024 6:19 PM
== END 2024-01-23 10:53 | disposition home or self-care (01) ==
LOC: ORPAIN 09:14
PROVIDERS: ATTEND Specialist
DX: M51.16 Intervertebral disc disorders with radiculopathy, lumbar region (principal)
CPT/HCPCS: 64483

== ENCOUNTER → 2024-02-06 | Outpatient (CLI) | payer MEDICARE ==
[2024-02-06 11:57] VITALS: BP 145/77; PULSE 71; RESP 20; TEMP 98.9
--- NOTE | 2024-02-06 14:44 | P.PAINPG ---
PQRS Measure Charge Sheet Comment: HISTORY OF PRESENT ILLNESS: A 78 yr old male presents today w severe and chronic LBP x 1 yr secondary to DDD, spondylosis and facet arthropathy without myelopathy for evaluation s/p L TFESI L4-L5 #2. Pt states he experienced 80% pain relief x 2 wks s/p procedure. Pt states pain level is provoked at 1 /10 in intensity, constant, localized in the lower lumbar spine, predominantly axial, stabbing in character w occasional shooting pain towards the BL hips, thighs and knees. Pain is provoked by laying supine on the left side. Pain is alleviated by PT 7 weeks which ended in Oct 2023, physician guided stretches daily since Oct 2023,medications, heat, use of a massage device, reclining and rest. Interventional procedures include ALICIA L4-L5 x1, L TFESI L4-L5 x1 Medications include [place] 5/325 mg, Advil REVIEW OF ORGAN SYSTEMS: CONSTITUTIONAL: No fevers or chills. No recent weight loss. NEUROLOGICAL: + numbness and tingling along the distal extremities. No seizure disorders or headaches. MUSCULOSKELETAL: + pain PSYCHIATRIC: Denies current depression or suicidal thoughts. Physical Examinations : Constitutional : Cooperative , not in acute distress . Neurologic : Cranial nerve II to XII intact. No focal neurological deficits. Psychiatric : alert & oriented x 3. Matching mood & appropriate affect. Judgment & insight intact. Musculoskeletal : Cervical Spine Motor strength in the deltoid and biceps: Normal right side. Normal Left side Motor strength biceps and the wrist extensors: Normal right side . Normal left side Motor strength in the triceps muscle: Normal right side. Normal left side Deep tendon reflexes: Normal at the biceps. Normal at Brachioradialis. Normal at triceps Vertebral body tenderness to deep palpation over Cervical facet loading test: positive bilaterally Spurling test: positive bilaterally Neck distraction test: positive bilaterally Manuela sign: positive bilaterally Lumbar spine Motor strength lower extremities ,thigh and legs 5/5 Right side , 5/5 Left side Deep tendon reflexes : Normal Knee Jerk. Normal Ankle Jerk Vertebral body tenderness over L4 Salazar Test positive over Lumbar facet Loading Test: positive Right / positive Left Range of motion of the lumbar spine Flexion 30 degrees, extension 10 degrees Straight Leg Raise test: Left/ Right positive at degree Earnest test: positive right / positive left. Severe tenderness over the Sacroiliac joint on the Right / Left sides Gaenslen test: positive bilaterally Seated flexion test: positive bilaterally. Sacral spine : Severe tenderness over the Sacroiliac joint: right side / left side Range of motion: Flexion of the lumbar spine <60 degrees Range of motion: Extension of the lumbar spine <20 degrees Gaenslen's Test positive Earnest test: positive right side / left side Thigh Thrust Test Sacral Thrust Test Imaging: MRI noncontrast of the lumbar spine from 02/07/23 reviewed Assessment/ Plan : Lumbar radiculopathy Will manage residual pain and may RTC on an as needed basis. All questions answered. I have spent greater than 30 minutes on patient care today. Dr Zamora was available by phone for the evaluation of this patient. The time was used to review the medical records including relevant urine studies and Prescription history (MAPs), review of the available imaging, evaluation and examination of the patient, coordination of care with the medical staff and if applicable referring physicians, as well as creation of the medical record PQRS Narrative: Smoking Status Never smoker Hx Alcohol Use (MH) No Home Medications: Ambulatory Orders Alfuzosin HCl [Alfuzosin HCl ER] 10 mg PO HS 10/18/23 Bimatoprost [Lumigan 0.01% Ophth Soln] 1 drop BOTH EYES HS 10/18/23 Doxycycline [Vibramycin] 100 mg PO HS 10/18/23 Finasteride [Proscar] 5 mg PO HS 10/18/23 Controlled Substance Measures - Controlled Substance Measures Is patient prescribed a controlled substance at discharge?: No
== END ==
LOC: PNWHC3 11:07
PROVIDERS: ATTEND Specialist
DX: M47.26 Other spondylosis with radiculopathy, lumbar region (principal)
CPT/HCPCS: 99211

== ENCOUNTER 2024-08-29 10:02 | Emergency (ER) | payer MEDICARE ==
[2024-08-29 10:15] VITALS: RESP 18
--- NOTE | 2024-08-29 10:31 | ED ---
Eye Problem HPI - General Chief complaint: Eye Problems Stated complaint: right eye issue Time Seen by Provider: 08/29/24 10:19 Source: patient Mode of arrival: ambulatory Limitations: no limitations - History of Present Illness Initial comments: Patient is a 78-year-old male who presents to the emergency department after hitting his eye with his hairbrush this morning. He states that immediately after he felt like he had blurry vision but attributed it to the watery eye. When he looked in the mirror he did notice that his eye was bloody. He denies that there is any increased pressure of his eye. He rates his pain as a 34/10. He reports a feeling of sand in his eye and is unsure if the soil that he was working with yesterday is in his eye or not. He denies any decreased vision or other visual changes. He is not sure when his last tetanus shot was but thinks it may have been at least 10 years ago. 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 MD chief complaint: eye injury Onset Description: sudden Location: right eye Place: home If Injury: direct trauma Severity scale (1-10): 3 - Related Data Patient Tetanus UTD: No (Unknown, thinks maybe over 10 years ago was the last one) Home Medications Medication Instructions Recorded Confirmed Alfuzosin HCl [Alfuzosin HCl ER] 10 mg PO HS 10/18/23 01/17/24 Bimatoprost [Lumigan 0.01% Ophth 1 drop BOTH EYES HS 10/18/23 01/17/24 Soln] Doxycycline [Vibramycin] 100 mg PO HS 10/18/23 01/17/24 Finasteride [Proscar] 5 mg PO HS 10/18/23 01/17/24 Previous Rx's Medication Instructions Recorded Diclofenac 0.1% Ophth Soln 1 drops RIGHT EYE QID PRN 3 Days 08/29/24 [Voltaren 0.1% Ophth Soln] #2.5 ml Allergies Allergy/AdvReac Type Severity Reaction Status Date / Time No Known Allergies Allergy Verified 08/29/24 10:15 Review of Systems ROS Statement: Those systems with pertinent positive or pertinent negative responses have been documented in the HPI. ROS Other: All systems not noted in ROS Statement are negative. Constitutional: Denies: fever, chills Eyes: Reports: as per HPI. Denies: vision change Past Medical History Past Medical History: Cancer, Eye Disorder, Hearing Disorder / Deafness, Osteoarthritis (OA), Prostate Disorder, Skin Disorder Additional Past Medical History / Comment(s): ECZEMA, pityriasis lichenoides, HX OF SHINGLES-STILL HAS SOME NUMBNESS ON FOREHEAD, skin cancer, glaucoma, deaf left ear, PAST HX OF HTN BUT HAS RESOLVED AND MEDICATIONS DISCONTINUED, BPH. Bi lat hearing aids. History of Any Multi-Drug Resistant Organisms: None Reported Past Surgical History: Appendectomy, Hernia Repair, Orthopedic Surgery Additional Past Surgical History / Comment(s): NASAL SX, LEFT THUMB, ACHILLES TENDON REPAIR, left knee arthroscopy x2, rt knee arthrosocpy, LUIZ CATARACT REMOVAL, KNEE NODULE REMOVED A CHILD. Past Anesthesia/Blood Transfusion Reactions: No Reported Reaction, Motion Sickness Additional Past Anesthesia/Blood Transfusion Reaction / Comment(s): NO HX BLOOD TRANSFUSION Past Psychological History: No Psychological Hx Reported Smoking Status: Never smoker - Past Family History Mother Family Medical History: Hypertension General Exam Limitations: no limitations General appearance: alert, in no apparent distress Expanded Eyelids: Normal Inspection: Bilateral Pupils: Regular, Round: Bilateral, Reactive: Bilateral Sclera/Conjunctival: Normal Inspection: Left, Hemorrhage: Right Anterior chamber: Normal Inspection: Bilateral Visual acuity (R) = 20/: 40 Visual acuity (L) = 20/: 50 IOP (R) in mmH ENT exam: Present: normal external ear exam Neck exam: Present: full ROM Respiratory exam: Present: normal lung sounds bilaterally. Absent: respiratory distress, rhonchi Cardiovascular Exam: Present: regular rate, normal rhythm, normal heart sounds GI/Abdominal exam: Present: soft, normal bowel sounds. Absent: distended, tenderness Neurological exam: Present: alert, oriented X3, CN II-XII intact Psychiatric exam: Present: normal affect, normal mood Skin exam: Present: warm, dry, intact, normal color Course Vital Signs 08/29/24 08/29/24 10:12 11:30 Temperature 97.4 F L 97.7 F Pulse Rate 77 72 Respiratory 18 18 Rate Blood Pressure 154/90 140/87 O2 Sat by Pulse 99 99 Oximetry Medical Decision Making - Medical Decision Making Was pt. sent in by a medical professional or institution (, PA, TRUCK DRIVER SALESPERSON, urgent care, hospital, or longterm...) When possible be specific @ -No Did you speak to anyone other than the patient for history (EMS, parent, family, police, friend...)? What history was obtained from this source @ -No Did you review nursing and triage notes (agree or disagree)? Why? @ -I reviewed and agree with nursing and triage notes Were old charts reviewed (outside hosp., previous admission, EMS record, old EKG, old radiological studies, urgent care reports/EKG's, longterm records)? Report findings @ -No old charts were reviewed Differential Diagnosis? @ -Corneal abrasion, foreign body of cornea, vitreous hemorrhage, ruptured globe, acute angle-closure glaucoma, hyphema, this is not meant to be an all- inclusive list. EKG interpreted by me (3pts min.). @ -None done X-rays interpreted by me (1pt min.). @ -None done CT interpreted by me (1pt min.). @ -None done U/S interpreted by me (1pt. min.). @ -None done What testing was considered but not performed or refused? (CT, X-rays, U/S, labs)? Why? @ -None What meds were considered but not given or refused? Why? @ -None Did you discuss the management of the patient with other professionals (professionals i.e. , PA, TRUCK DRIVER SALESPERSON, lab, RT, psych nurse, director of social media marketing, soaking pit operator, teacher, financial officer, rn case management)? Give summary @ -No Was smoking cessation discussed for >3mins.? @ -No Was critical care preformed (if so, how long)? @ -No Were there social determinants of health that impacted care today? How? (Homelessness, low income, unemployed, alcoholism, drug addiction, bridges sportation, low edu. Level, literacy, decrease access to med. care, skilled nursing, rehab)? @ -No Was there de-escalation of care discussed even if they declined (Discuss DNR or withdrawal of care, Hospice)? DNR status @ -No What co-morbidities impacted this encounter? (DM, HTN, Smoking, COPD, CAD, Cancer, CVA, ARF, Chemo, Hep., AIDS, mental health diagnosis, sleep apnea, morbid obesity)? @ -None Was patient admitted / discharged? Hospital course, mention meds given and route, prescriptions, significant lab abnormalities, going to OR and other pertinent info. @ -78-year-old male presented to the ED for eye injury. Proparacaine and fluorescein were applied to the right eye and was viewed under Michaud lamp which revealed corneal abrasion. Tonometry was performed which revealed IOP of 13. Patient is not a contact lens wear. He was given a tetanus shot as his last one he believes was more than 10 years ago. He was provided polymyxin B ophthalmologic, apply 1 drop 4 times daily for 5 days. He was provided with a prescription for diclofenac ophthalmologic, apply 1 drop 4 times daily for 3 days as needed for pain. He was discharged with instructions to follow-up with PCP in 1 to 2 days. Undiagnosed new problem with uncertain prognosis? @ -No Drug Therapy requiring intensive monitoring for toxicity (Heparin, Nitro, Insulin, Cardizem)? @ -No Were any procedures done? @ -No Diagnosis/symptom? @ -Corneal abrasion Acute, or Chronic, or Acute on Chronic? @ -Acute Uncomplicated (without systemic symptoms) or Complicated (systemic symptoms)? @ -Uncomplicated Side effects of treatment? @ -No Exacerbation, Progression, or Severe Exacerbation? @ -No Poses a threat to life or bodily function? How? (Chest pain, [place], [place], pneumonia, PE, COPD, DKA, ARF, appy, cholecystitis, CVA, Diverticulitis, Homicidal, Suicidal, threat to staff... and all critical care pts) @ -No Disposition Clinical Impression: Corneal abrasion Disposition: HOME SELF-CARE Condition: Stable Instructions (If sedation given, give patient instructions): Abrasion (ED) Additional Instructions: Please follow up with primary care provider in 1-2 days. Please follow-up with specialists as indicated. Please monitor yourself closely for new, changing or worsening symptoms, symptoms that persist beyond another 72 hours, fever, inability to tolerate/keep down fluids or your medications, inability to follow up with outpatient providers as instructed and should you experience these symptoms or should you have any further concerns for your wellbeing please return to the ED or call 911 immediately. Prescriptions: Diclofenac 0.1% Ophth Soln [Voltaren 0.1% Ophth Soln] 1 drops RIGHT EYE QID PRN 3 Days #2.5 ml PRN Reason: Pain Is patient prescribed a controlled substance at d/c from ED?: No Referrals: Maykel Leahy DO [Primary Care Provider] - 1-2 days Time of Disposition: 11:03
[2024-08-29] MEDS: FLUORESCEIN STRIPS 1 MG STRIP RIGHT EYE ONE (10:32)
[2024-08-29] MEDS: PROPARACAINE 0.5% OPHTH DROPS 15 ML BTL RIGHT EYE STA (10:32)
[2024-08-29] MEDS: DIPH,PERTUS(ACELL)TETVAC-LF 0.5 ML VIAL IM ONE (11:25)
[2024-08-29] MEDS: POLYMYXIN B-TRIMETHOPRIM SULF (10,000-1) OPHTH DROPS 10 ML BTL RIGHT EYE SCH (11:26)
[2024-08-29 11:33] VITALS: BP 140/87; PULSE 72; TEMP 97.7
== END 2024-08-29 11:35 | disposition home or self-care (01) ==
LOC: EC 10:02
DX: S05.01XA Injury of conjunctiva and corneal abrasion without foreign body, right eye, initial encounter (principal); Z23 Encounter for immunization; X58.XXXA Exposure to other specified factors, initial encounter; Y93.E8 Activity, other personal hygiene; Y92.009 Unspecified place in unspecified non-institutional (private) residence as the place of occurrence of the external cause
CPT/HCPCS: 90471; 90715; 99283

== ENCOUNTER → 2024-11-11 | Outpatient (CLI) | payer MEDICARE ==
--- NOTE | 2024-11-12 11:43 | MR ---
EXAMINATION TYPE: MR shoulder RT wo con DATE OF EXAM: 11/11/2024 10:58 AM COMPARISON: None. CLINICAL INDICATION: Male, 79 years old with history of M25.511 PAIN IN RIGHT SHOULDER, Rt shoulder p ain IV Contrast: cc (None if empty) TECHNIQUE: Multiplanar, multisequence imaging of the right shoulder is performed without contrast. FINDINGS: There is moderate to marked osteoarthritis of the AC joint. There is mild thinning of the articular c artilage of the glenohumeral joint indicating mild osteoarthritis. There is moderate subdeltoid bursitis. There are multiple subchondral cysts in the humeral head at the attachment of the rotator cuff. There is a rim rent tear of the anterior aspect of the supraspinatus tendon without retraction. Infraspinatus is intact. There is thickening of the subscapularis tendon but no discrete tear. The biceps tendon is normal in signal intensity and position within the bicipital groove and the brody ps anchor is intact. There is abnormal signal intensity within the posterior aspect of the superior cartilaginous labrum s uggesting small labral tear. IMPRESSION: 1. Marked degenerative changes AC joint and mild degenerative change of the glenohumeral joint. 2. Marked subdeltoid bursitis. 3. Supraspinatus tendinosis with small anterior rim rent tear but no retraction. 4. Tendinosis of the subscapularis tendon without discrete tear. 5. Cannot exclude a small tear of the posterior superior cartilaginous labrum. [facility], Workstation: [facility], 11/12/2024 11:40 AM
== END | disposition home or self-care (01) ==
LOC: RADMRIMAIN 10:01
PROVIDERS: ATTEND Orthopaedic Surgery
DX: M19.011 Primary osteoarthritis, right shoulder (principal); M75.51 Bursitis of right shoulder; M67.813 Other specified disorders of tendon, right shoulder